=== PATIENT | female | born 1975 | race Hispanic/Latino ===

== ENCOUNTER → 2018-03-26 | Outpatient (CLI) | payer OTHER ==
[~2018-03-26] MED LIST: AUGMENTIN 500-1 EACH PO; CIPRO500 MG PO; FLAGYL250 MG PO; HUMULIN 70100 UNIT/2 SC; HYDROCODON-ACE1 EAC3 PO; IBUPROFEN400 MG PO; PANTOPRAZOLE SO40 MG PO; PROPRANOLOL HCL80 M1 PO
--- NOTE | 2018-03-26 14:58 | Diagnostic Imaging Report ---
PROCEDURE:US THYROID COMPARISON:None. INDICATIONS:F/U THYROID CYSTS TECHNIQUE:Transverse and sagittal images were obtained of the thyroid gland. FINDINGS: THYROID GLAND: SIZE: RIGHT LOBE:4.4 x 1.5 x 1.6 cmNormal in size. LEFT LOBE:3.8 x 1.3 x 1.6 cmNormal in size. ISTHMUS:0.4 cm Normal in size. APPEARANCE:Homogeneous echotexture without increased vascularity MASSES/NODULES: 1.0 x 0.7 x 0.8 cm hypoechoic solid nodule in the right interpolar region without calcifications. 1.8 x 1.2 x 0.9 cm predominantly solid hypoechoic nodule in the left superior pole without calcifications. PARATHYROID: No focal parathyroid masses. CONCLUSION: Normal size thyroid. Bilateral solid thyroid nodules. Recommend follow up ultrasound in one year to ensure stability. Dictated by: Eduar Millan M.D. on 03/26/2018 at 15:02 Electronically approved by: Eduar Millan M.D. on 03/26/2018 at 15:02
== END ==
LOC: US 13:08
PROVIDERS: ATTEND Family Medicine
DX: E04.2 Nontoxic multinodular goiter (principal)
CPT/HCPCS: 76536